=== PATIENT | male | born 1980 | race Caucasian/White ===

== ENCOUNTER 2019-10-17 21:25 | Emergency (ER) | payer OTHER, SELFPAY ==
[~2019-10-17] VITALS: Ht 170.2 cm; Wt 73.5 kg
[2019-10-17 21:31] VITALS: BP 124/91
--- NOTE | 2019-10-17 22:53 | NUR ---
SHOULDER IMOBILIZER PLACED
== END 2019-10-17 23:19 | disposition home or self-care (01) ==
LOC: ED 22:30
DX: S42.255A Nondisplaced fracture of greater tuberosity of left humerus, initial encounter for closed fracture (principal); W19.XXXA Unspecified fall, initial encounter; Y93.89 Activity, other specified; Y92.488 Other paved roadways as the place of occurrence of the external cause; Y99.8 Other external cause status
CPT/HCPCS: 29105; 99284